=== PATIENT | male | born 1970 | race Caucasian/White ===

== ENCOUNTER 2024-12-27 13:30 | Outpatient (RCR) | payer OTHER, SELFPAY | END 2024-12-29 13:39 | disposition home or self-care (01) | LOC: HO.CR 13:30 | PROVIDERS: PCP Student in an Organized Health Care Education/Training Program; Visit Provider Thoracic Surgery (Cardiothoracic Vascular Surgery) | DX: Z95.2 Presence of prosthetic heart valve (principal) | CPT/HCPCS: 93798 ==